=== PATIENT | female | born 1975 | race Caucasian/White ===

== ENCOUNTER → 2017-01-02 | Outpatient (CLI) | payer BC, OTHER ==
--- NOTE | 2017-01-02 10:49 | MRI ---
Procedure: MR BRAIN WITHOUT IV CONTRAST Exam Date: 01/02/2017 10:03 AM CDT Ordering Provider: SHAKIRA STALLWORTH Clinical Indication: TENSION HEADACHES Comparison: None Technique: Multiplanar MRI of the brain was obtained without the administration of IV contrast. 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 Ventricular size and configuration are normal. There is no midline shift or hydrocephalus. There is normal signal within the cortical finnegan matter, subcortical white matter, and periventricular white matter. There is normal signal within the deep finnegan matter nuclei. There is normal signal within the cerebellum. There is normal signal within the brainstem. There is no evidence of an acute infarct. There is no parenchymal hemorrhage. The pituitary gland is normal in size. There are no pineal masses. There are normal intracranial vascular flow voids. The foramen magnum is normal. There is normal signal within the paranasal sinuses. The orbits are intact. IMPRESSION: 1. Nonacute MRI of the brain without the administration of IV contrast. 2. 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 Electronically signed by: Gamaliel Krishna MD 01/02/2017 10:49 AM CDT
== END | disposition home or self-care (01) ==
LOC: MRI 09:51
PROVIDERS: ATTEND Family Medicine
DX: G44.209 Tension-type headache, unspecified, not intractable (principal)

== ENCOUNTER → 2017-05-31 | Outpatient (CLI) | payer BC, SELFPAY ==
--- NOTE | 2017-06-01 02:02 | MRI ---
EXAM DATE: 05/31/2017 12:00 AM CDT. PROCEDURE: MR CERVICAL SPINE WITHOUT THEN WITH IV CONTRAST. INDICATION: SYRINX OF SPINAL CORD. COMPARISON: MRI of the brain 01/02/2017. TECHNIQUE: Multiplanar T1 and T2 MRI images of the cervical spine were acquired before and after administration of intravenous contrast.. FINDINGS: There is straightening of the normal cervical lordosis. The cervical vertebral bodies otherwise demonstrate normal height and alignment. There is mild disc space height loss and desiccation at nearly all levels. Normal marrow signal. Inferiorly directed peg shaped cerebellar tonsils extending 10 mm below the foramen magnum. There is a small 4 mm nonenhancing syrinx within the mid cord at the level of C1. There is otherwise no cord signal abnormality in the remainder of the cervical spine. There is a congenitally small spinal canal. C2-C3: No significant disc bulge. No spinal canal or neural foraminal narrowing. C3-C4: Small left paracentral disc protrusion causes mild narrowing of the spinal canal. Uncovertebral spurring and facet arthropathy without significant foraminal stenosis. C4-C5: Mild disc bulge resulting in mild/moderate spinal canal stenosis. No foraminal stenosis. C5-C6: Disc bulge with osteophytic spurring resulting in moderate spinal canal stenosis. Uncovertebral spurring contributes to moderate bilateral foraminal stenosis. C6-C7: Central disc extrusion indenting the ventral cord resulting in mild narrowing of the spinal canal. Uncovertebral spurring contributes to mild right foraminal narrowing. No significant left foraminal stenosis. C7-T1: No significant disc bulge. No spinal canal or neural foraminal narrowing. 6 mm T2 hyperintense right thyroid nodule. No further followup is recommended. The soft tissues of the neck are otherwise unremarkable. IMPRESSION: Findings of Chiari 1 with a tiny 4 mm syrinx at the level of C1. Mild degenerative changes superimposed on a congenitally small spinal canal results in moderate spinal canal stenosis C5-C6. Moderate bilateral foraminal stenosis C5-C6. Central disc extrusion indents the ventral cord at C6-C7. Electronically signed by: Gunnar Almaguer MD 06/01/2017 2:00 AM CDT
== END | disposition home or self-care (01) ==
LOC: MRI 10:47
PROVIDERS: ATTEND Psychiatry & Neurology Neurology
DX: G95.0 Syringomyelia and syringobulbia (principal)

== ENCOUNTER → 2018-06-05 | Outpatient (CLI) | payer BC | LOC: GMAM 10:45 | PROVIDERS: ATTEND Family Medicine | DX: E03.9 Hypothyroidism, unspecified (principal) ==

== ENCOUNTER → 2019-06-09 | Outpatient (CLI) | payer BC | LOC: GMAM 12:10 | PROVIDERS: ATTEND Family Medicine | DX: Z00.00 Encounter for general adult medical examination without abnormal findings (principal) ==

== ENCOUNTER → 2019-06-17 | Outpatient (CLI) | payer BC ==
--- NOTE | 2019-06-17 19:17 | MRI ---
EXAM DESCRIPTION: Brain w/wo Contrast: Magnetic Resonance Imaging. CLINICAL HISTORY: 43 years Female [facility] COMPARISON: MRI scan of the brain and MRI scan of the cervical spine without contrast December 2016 and May 2017. TECHNIQUE: Multiplanar, high-field MRI, multiple conventional sequences, without and with gadolinium IV contrast. No adverse reactions. Multiple axial diffusion sequences. FINDINGS: cerebellar tonsils are peg-shaped and inferior tip is 11.5 mm below the foramen magnum. Crowding of the posterior brainstem in the foramen magnum. No abnormal enhancement in the tonsils. Hypointense T1 density in the central cord at the level of the C2 odontoid process is consistent with a small syrinx as was seen on the prior study. No abnormal enhancement in the cord. Slight retroflexion of distal 1 cm and tip of the odontoid is again noted, with mass effect on the anterior CSF space, and is abutting the medullary-cord junction. Normal signal and enhancement in the cerebellum. The fourth ventricle is not enlarged or elongated, and stable in size since the prior study. Normal FLAIR and T2-weighted signal in the periventricular white matter and finnegan-white matter junctions of the cerebral hemispheres. . Normal signal in the bilateral basal ganglia. No hemorrhage, no cerebral edema, no mass-effect. Normal contrast enhancement. Normal signal in the brainstem and cerebellar hemispheres. No hemorrhage, no cerebral edema, no mass-effect. Normal contrast enhancement. Concordance of the diffusion and non-diffusion sequences with no evidence of acute or subacute infarction. Cortical sulci, ventricles, and other CSF spaces, and the subdural spaces are normally configured above the level of the fourth ventricle.. No effacement or displacement. No midline shift. No extra-axial hemorrhage. Normal contrast enhancement. Normal flow signal void in the major vessels of the [place] Hernández, and the venous sinuses. IACs are symmetric bilaterally. No fluid in the bilateral mastoid air cells. No mass effect in the bilateral Cerebellopontine angles. Normal contrast enhancement. Pituitary gland occupies most of the sella. Normal contrast enhancement prominent sphenoid air cells extend to the MID undersurface of the sella. The mid clivus, in the sagittal plane, measures 3.2 cm from the posterior sphenoid air cell to the anterior foramen magnum (basion). Prominent sphenoid air cells. Rudimentary frontal air sinuses. Hypertrophy of the turbinates in the nasal passages.. The bony calvarium is intact. IMPRESSION: 1. Chiari I malformation with peg-shaped cerebellar tonsils which protrude 11.5 mm below the foramen magnum. Stable since the prior study. Crowding of the foramen magnum with tonsils impressing on the posterior brainstem. Clivus is not shortened. Fourth ventricle is normal size and not elongated. Stable small syrinx in the cord at the level of the posterior odontoid. Superior 1 cm of the odontoid is retroflexed and impressing on the anterior CSF space at the medullary-cord junction. Stable since the prior study. 2. Remainder of the brain is unremarkable on MRI scan with normal diffusion and normal enhancement. Electronically signed by: Nayan Almanza MD 06/17/2019 7:16 PM [facility]
== END ==
LOC: MRI 09:50
PROVIDERS: ATTEND Family Medicine
DX: Q07.00 Arnold-Chiari syndrome without spina bifida or hydrocephalus (principal)

== ENCOUNTER → 2020-07-05 | Outpatient (CLI) | payer BC | LOC: GMALS 10:59 | PROVIDERS: ATTEND Nurse Practitioner Acute Care | DX: Z00.00 Encounter for general adult medical examination without abnormal findings (principal) ==